=== PATIENT | male | born 1990 | race African-American/Black ===

== ENCOUNTER 2018-12-08 11:31 | Emergency (ER) | payer OTHER ==
[2018-12-08 11:39] VITALS: BP 134/69
[2018-12-08] MEDS ORDERED: METHOCARBAMOL 500 MG TABLET PO ONE (11:58)
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
== END 2018-12-08 12:22 | disposition home or self-care (01) ==
LOC: ER 11:31
DX: F07.81 Postconcussional syndrome (principal); S09.90XA Unspecified injury of head, initial encounter; V48.5XXA Car driver injured in noncollision transport accident in traffic accident, initial encounter; F17.200 Nicotine dependence, unspecified, uncomplicated
CPT/HCPCS: 99283